=== PATIENT | female | born 1980 | race Caucasian/White ===

== ENCOUNTER 2017-01-21 05:18 | Day surgery (SDC) | payer OTHER, SELFPAY ==
[2017-01-14 15:07] VITALS: BMI 29.0
[~2017-01-21] VITALS: Ht 152.4 cm; Wt 67.3 kg
[~2017-01-21 05:18] MED LIST: B-COTAB18 PO; BCPILLS PO; CHOL20007 PO; LEVO75TA PO
[2017-01-21 05:45] VITALS: BP 128/81; PULSE 72; TEMP 36.8; O2SAT 99; Ht 152.4 cm; Wt 67.3 kg
[2017-01-21] MEDS ORDERED: CEFAZOLIN 2000 MG/60 ML D5W IV SCH (06:00)
[2017-01-21] MEDS ORDERED: LACTATED RINGER'S 1000ML 1,000 ML IV SCH (06:00)
[2017-01-21] MEDS ORDERED: PROPOFOL IV EMULSION 10 MG/ML 20 ML VIAL IV ONE (06:39)
[2017-01-21] MEDS ORDERED: FENTANYL CITRATE INJ 50 MCG/1 ML 2 ML VIAL ONE (06:39)
[2017-01-21] MEDS ORDERED: NEOSTIGMINE METHYLSULFATE 5 MG/5 ML SYR ONE (06:39)
[2017-01-21] MEDS ORDERED: GLYCOPYRROLATE INJ 0.2 MG/ML VIAL ONE (06:39)
[2017-01-21] MEDS ORDERED: ROCURONIUM BROMIDE 10 MG/ML 5 ML VIAL ONE ×2 (06:39→08:29)
[2017-01-21] MEDS ORDERED: ONDANSETRON INJ 2 MG/ML 2 ML VIAL ONE (06:39)
[2017-01-21] MEDS ORDERED: MIDAZOLAM HCL 1 MG/ML 2ML VIAL ONE (06:39)
[2017-01-21] MEDS ORDERED: LIDOCAINE HCL 2% 2 ML VIAL (20MG/ML) ONE (06:39)
[2017-01-21] MEDS ORDERED: ACETAMINOPHEN 1000 MG/100 ML IV IV ONE (06:42)
[2017-01-21] MEDS ORDERED: SCOPOLAMINE 1.5 MG TDSY TD ONE (06:56)
--- NOTE | 2017-01-21 06:56 | History & Physical Bridge Note ---
H&P Re-Evaluation Bridge Note: I have examined the patient, reviewed the History & Physical and in the interval since the performance of the History & Physical I have noted the following changes of clinical significance: No changes noted
[2017-01-21] MEDS ORDERED: LIDOCAINE/EPINEPHRINE 1% 20 ML VIAL ONE (06:57)
[2017-01-21] MEDS ORDERED: BUPIVACAINE 0.25% 30 ML VIAL ONE (06:57)
[2017-01-21] MEDS ORDERED: EpINEphrine INJ 1MG/ML AMP 1 MG/ML AMP ONE (06:58)
[2017-01-21] MEDS ORDERED: LIDOCAINE HCL 1% 20 ML VIAL ONE (06:58)
[2017-01-21] MEDS ORDERED: DiphenhydrAMINE HCL 50 MG/ML VIAL ONE (07:51)
[2017-01-21] MEDS ORDERED: METOCLOPRAMIDE HCL INJ 5 MG/ML 2 ML VIAL ONE (07:51)
[2017-01-21] MEDS ORDERED: HYDROmorphone INJ 2 MG/ML SYR/VIAL ONE (08:22)
[2017-01-21] MEDS ORDERED: SODIUM CHLORIDE 0.9% INJ 10 ML VIAL ONE (08:22)
[2017-01-21] MEDS ORDERED: FLUMAZENIL 0.1 MG/1 ML 10 ML VIAL IV PRN (08:30)
[2017-01-21] MEDS ORDERED: NALOXONE HCL 0.4 MG/1 ML VIAL/CARP IV PRN (08:30)
[2017-01-21] MEDS ORDERED: LABETALOL HCL IV 5 MG/ML 20ML IV PRN (08:30)
[2017-01-21] MEDS ORDERED: MEPERIDINE HCL 25 MG/ML CARP IV PRN (08:30)
[2017-01-21] MEDS ORDERED: EpHEDrine SULFATE INJ 50 MG/ML AMP IV PRN (08:30)
[2017-01-21] MEDS ORDERED: ONDANSETRON INJ 2 MG/ML 2 ML VIAL IV PRN ×2 (08:30→10:45)
[2017-01-21] MEDS ORDERED: ATROPINE SULFATE 0.1 MG/ML 5ML SYR IV PRN (08:30)
[2017-01-21] MEDS ORDERED: HYDROmorphone INJ 1 MG/ML SYR IV PRN (08:30)
[2017-01-21] MEDS ORDERED: PHENYLEPHRINE 100MCG/ML 5ML SYR IV PRN (08:30)
--- NOTE | 2017-01-21 10:37 | [facility] Post Operative Brief Note ---
Immediate Operative Summary Operative Date Jan 21, 2017. Pre-Operative Diagnosis Bilateral Breast Hypertrophy Post-Operative Diagnosis Same as preoperative. Procedure(s) Performed Bilateral Breast Reduction Surgeon Senior Stereo Compiler Team Lead Surgeon(s) Lisy Nichols Estimated Blood Loss 25ml Findings NACs pink and viable bilaterally, breasts appeared symmetric at close of case Specimens A. Left Breast Tissue 280 grams B. Right Breast Tissue 226 grams Drains BERT x2 Anesthesia GET Complication(s) None Disposition Recovery Room / PACU
[2017-01-21] MEDS ORDERED: OXYCODONE/ACETAMINOPHEN 5-325 TAB PO PRN ×2 (10:45)
[2017-01-21] MEDS ORDERED: ACETAMINOPHEN 325 MG TAB PO PRN (10:45)
--- NOTE | 2017-01-21 10:49 | Discharge Instructions ---
Discharge Instructions Date of Service Jan 21, 2017. Admission Reason for Admission: Breast Hypertrophy In Female Discharge Discharge Diagnosis / Problem: breast hypertrophy Discharge Goals Goal(s): Decrease discomfort Activity Recommendations Activity Limitations: per Instructions/Follow-up section ACTIVITY RECOMMENDATIONS: __Normal activities _x_No bending, lifting or straining __No driving __Driving allowed when you are off pain medications __Walking permitted __You should have help at home for ___ days DRESSINGS: __No dressings required _x_Keep dressings dry/in place until first office visit __Remove dressings ___ and leave dressings off __Apply ice ___ days __Remove dressings and reapply garment __Apply antibiotic ointment (Bacitracin, Neosporin, etc) to wounds 3-4 times/ day for 10 days BATHING: _x_Keep dressings dry __Sponge bathing permitted __Showering permitted __No swimming, hot tubs or soaking in a tub MEDICATIONS: Resume previous medications unless instructed otherwise by your surgeon. _x_Do not use aspirin, Motrin, Advil or Ibuprofen as these may promote bleeding. Please use Tylenol. _x_Prescription(s) provided: Pain medication was provided at your last office visit. Diflucan will be called into your pharmacy OTHER INSTRUCTIONS: _x_Record drain output 2-3 times per day. Do not call or worry if your drain falls out overnight. Check your nipples about every 4 hours while awake. They should appear pink, antonietta when pressed then return to pink color. Call if they appear dark/dusky SPECIAL CARE INSTRUCTIONS: * It is normal to have a mild fever after surgery. If your temperature is higher than 101.5 degrees F, please call the office at [phone]. * Constipation is a typical side effect of pain medication. An over-the- counter stool softener will help relieve this. * Leaking around surgical drains may occur and should not cause concern. Sometimes these drains become clogged. If this happens, remove the bulb and milk the clot out of the tube, then replace the bulb. * Drainage from wounds after liposuction is normal and should be expected. Garments will become soiled. You should protect furniture and bedding. This drainage should mostly subside within 2-3 days. Leave garments in place unless instructed to remove them. * If you have unusual drainage from a wound or are concerned you have an infection or have any questions or concerns, please call the office at [phone]. FOLLOW UP VISIT: If not already scheduled, please call the office, , when you return home after surgery to schedule an appointment to be seen in __1_ days. . Current Hospital Diet Patient's current hospital diet: Regular Diet Discharge Diet Recommended Diet: Regular Diet Procedures Procedures Performed: Bilateral Breast Reduction Pending Studies Studies pending at discharge: yes List of pending studies: pathology Medical Emergencies . Who to Call and When: Medical Emergencies: If at any time you feel your situation is an emergency, please call 911 immediately. . Non-Emergent Contact Non-Emergency issues call your: Primary Care Provider, Surgeon . "Provider Documentation" section prepared by Lisy Nichols. VTE Core Measure Inpt VTE Proph given/why not?: SCD's [place] Drug Monitoring Program Search Results: no issues identified
--- NOTE | 2017-01-21 11:03 | Medical Student: [facility] ---
Immediate Operative Summary Operative Date Jan 21, 2017. Pre-Operative Diagnosis Bilateral breast hypertrophy Post-Operative Diagnosis Same Procedure(s) Performed Bilateral breast reduction Surgeon Dr. Olivier MD Toolmaker Helper Surgeon(s) Lisy Nichols PA-C Estimated Blood Loss 25 ml Findings fibrocystic changes bilaterally Fluids (cc crystalloids) 1300 cc Specimens left and right breast tissue Drains x2, one in each breast Anesthesia General Complication(s) None Disposition Recovery Room / PACU
--- NOTE | 2017-01-21 11:13 | Anesthesiology Progress Note ---
Anesthesia Post Op Note Date & Time Jan 21, 2017 at 11:13 Vital Signs Pain Intensity: 0 Vital Signs Past 12 Hours Date Time Temp Pulse Resp B/P Pulse Ox O2 Delivery O2 Flow Rate FiO2 01/21/17 11:05 54 12 107/71 99 Diffusion Mask 10 01/21/17 10:55 36 60 12 118/77 98 Diffusion Mask 10 01/21/17 05:45 36.8 72 16 128/81 99 Room Air Notes Mental Status: alert / awake / arousable, participated in evaluation Pt Amnestic to Procedure: Yes Nausea / Vomiting: adequately controlled Pain: adequately controlled Airway Patency, RR, SpO2: stable & adequate BP & HR: stable & adequate Hydration State: stable & adequate Anesthetic Complications: no major complications apparent
[2017-01-21] MEDS ORDERED: NURSING VERBAL MED ORDER ONE (11:30)
[2017-01-21] MEDS: FENTANYL CITRATE INJ 50 MCG/1 ML 2 ML VIAL IV PRN ×2 (11:44→11:49)
[2017-01-21] MEDS ORDERED: PROMETHAZINE HCL INJ 25 MG in SODIUM CHLORIDE 0.9% 50ML 50 ML IV ONE (11:45)
[2017-01-21 12:20] VITALS: BP 110/69; PULSE 66; TEMP 36.3; O2SAT 98
[2017-01-21 12:50] VITALS: BP 110/68; PULSE 75; TEMP 36.9; O2SAT 100
[2017-01-21 13:20] VITALS: BP 113/71; PULSE 67; TEMP 36.9; O2SAT 98
--- NOTE | 2017-01-21 13:25 | OPERATIVE REPORT ---
DATE OF OPERATION: 01/21/2017 PREOPERATIVE DIAGNOSIS: Bilateral symptomatic macromastia. POSTOPERATIVE DIAGNOSIS: Same. PROCEDURE: Bilateral reduction mammoplasty. SURGEON: Dr. Fannie Aguayo. HOUSING GRANT ANALYST: Lisy Nichols PA-C ANESTHESIA: General. COMPLICATIONS: None. INDICATION FOR THE PROCEDURE: The patient is a 36-year-old female who presented to my office with complaints of back, neck and shoulder pain related to her large breasts. She desired to be a C cup postoperatively if possible. BRIEF DESCRIPTION OF THE PROCEDURE: The risks, benefits and alternatives of the procedure were explained to patient who agreed and signed consent. She was identified and marked in the preoperative holding area. She was brought to the operating room where she was positioned supine and placed under general anesthesia without incident. Surgical site was prepped and draped sterilely. A time-out procedure was performed. Markings were reassessed and a 7 cm pedicle was marked. I began with the left side. 1% lidocaine with epinephrine was used to anesthetize the planned incisions. A 38 mm cookie cutter was used to circumscribe the nipple-areolar complex. The previously marked 7 cm pedicle was incised using a 15 blade scalpel and de-epithelized. I began with the medial dissection of the pedicle using electrocautery. Cautery was used to incise through dermis and breast parenchyma down to the chest wall, taking care not to undermine the pedicle during dissection. A similar procedure was undertaken on the lateral aspect of the pedicle, taking care not to undercut the pedicle. Lastly, pedicle was dissected out superiorly using electrocautery. This was carried down to chest wall. I then began excision of the medial breast tissue followed by the lateral aspect of the breast tissue. A 15 blade scalpel was used to make the inframammary fold incision and electrocautery was used to deepen the incision through dermis and breast parenchyma. Dissection was then carried superiorly to the level of the superior incision. Superior incision was then incised using 15 blade scalpel and again dissected using electrocautery. A similar procedure was undertaken laterally and then around the keyhole portion of the incision. Care was taken to leave some fat on the lateral pectoral fascia in order to protect the T4 intercostal nerve. Hemostasis was achieved with electrocautery. Specimen was removed in its entirety and passed off for weighing. The left breast tissue weight was 280 grams. The wound was irrigated with normal saline. Hemostasis was achieved with electrocautery. 0.25% Marcaine plain was used to anesthetize the incisions as well as the pectoralis fascia. A 15 [place] Fred drain was brought out through a separate stab incision. The nipple-areolar complex was advanced into the keyhole using 2-0 Vicryl deep dermal suture. The T-junction was approximated using 2-0 Vicryl deep dermal suture. The wound was closed first in a [id number] breast direction using 2-0 Vicryl deep dermals and then [id number] breast using 2-0 Vicryl deep dermal sutures. The vertical limb was approximated using 2-0 Vicryl deep dermals. The nipple-areolar complex was also inset using 2-0 Vicryl deep dermals. Next, the superficial dermal layer was closed using 2-0 PDO running Quill suture along the inframammary fold and 3-0 PDS for the vertical limb and nipple-areolar complex incisions. Lastly, 3-0 Monocryl running subcuticular suture was placed. The inframammary fold as well as the vertical limb were dressed using Prineo and Dermabond was placed around the nipple-areolar complex. A similar procedure was undertaken on the right side. Total resection weight from the right breast was 228 grams and was the smaller side preoperatively. At the end of the case, nipple-areolar complexes were pink and viable. There was excellent symmetry between the breasts. I felt patient was within her goal range for size and could not have attempted resection of any further tissue due to concern for pedicle viability as well as a skin flap viability. Following wound closure, dry dressings and a surgical bra were placed. The patient was awakened and transferred to the recovery room in satisfactory condition. Lisy Nichols PA-C was present and scrubbed throughout the entire procedure and was instrumental in providing retraction during dissection of the pedicle as well as assisting in simultaneous wound closure. I attest to the content of the Intraoperative Record and any orders documented therein. Any exceptio ns are noted below.
[2017-01-21 14:00] VITALS: BP 103/74; PULSE 83; TEMP 36.6; O2SAT 96
[2017-01-21 15:00] VITALS: BP 102/67; PULSE 66; TEMP 36.8; O2SAT 97
== END 2017-01-21 15:15 | disposition home or self-care (01) ==
LOC: C.ACU 05:18
PROVIDERS: ATTEND Plastic Surgery
DX: N62 Hypertrophy of breast (principal); N60.19 Diffuse cystic mastopathy of unspecified breast; L82.1 Other seborrheic keratosis; E03.9 Hypothyroidism, unspecified